=== PATIENT | male | born 1960 | race Caucasian/White ===

== ENCOUNTER 2024-06-16 21:52 | Emergency (ER) | payer BC, SELFPAY ==
[2024-06-16 21:53] VITALS: BP 117/83; PULSE 121; RESP 20; TEMP 36.6; O2SAT 93; BMI 25.4
[2024-06-16 22:12] LABS: Microscopic, Urine URINE MICROSCOPIC (MICROSCOPIC)
--- NOTE | 2024-06-16 22:15 | CT_ITS ---
PROCEDURE INFORMATION: Exam: CT Abdomen And Pelvis Without Contrast Exam date and time: 06/16/2024 10:27 PM Age: 64 years old Clinical indication: Abdominal pain; Flank; Right; Additional info: R>l flank pain, h/o stones TECHNIQUE: Imaging protocol: Computed tomography of the abdomen and pelvis without contrast. Radiation optimization: All CT scans at this facility use at least one of these dose optimization techniques: automated exposure control; mA and/or kV adjustment per patient size (includes targeted exams where dose is matched to clinical indication); or iterative reconstruction. COMPARISON: No relevant prior studies available. FINDINGS: Lungs: Mild bibasilar atelectasis. Liver: Normal. No mass. Gallbladder and biliary ducts: Status post cholecystectomy. No significant biliary ductal dilitation. Pancreas: Normal. No ductal dilation. Spleen: Calcified granulomas in the spleen. No splenomegaly. Adrenal glands: Normal. No mass. Kidneys and ureters: No urinary tract calculi or hydronephrosis. Mild bilateral perinephric fat stranding could be due to chronic medical renal disease. 2.2 cm cyst in the upper pole of the left kidney. Stomach and bowel: Mild sigmoid colon diverticulosis with mild diverticulitis of the proximal sigmoid colon. No dilated bowel loops. Appendix: No evidence of appendicitis. Intraperitoneal space: Mild inflammatory changes adjacent to an enlarged diverticulum in the proximal sigmoid colon. No free fluid or free air. Vasculature: Minimal atherosclerotic disease without aneurysm. Lymph nodes: Unremarkable. No enlarged lymph nodes. Urinary bladder: Unremarkable as visualized. Reproductive: Mild prostate enlargement. Bones/joints: Mild multilevel lumbar spine degenerative disc disease. Severe L4-L5 facet arthropathy with 2 mm of grade 1 anterolisthesis of L4 over L5. Soft tissues: Small fat containing bilateral inguinal hernias. Tiny fat containing umbilical hernia. IMPRESSION: 1. Mild diverticulitis of the proximal sigmoid colon. No free fluid or free air. 2. No urinary tract calculi. COMMENTS: Consistent with the [employer]'s Incidental Findings Committee white paper (J Am David Radiol 2018): Any incidental renal lesion less than 1 cm or classified as too small to characterize, or any incidental cystic renal lesion characterized as simple-appearing, is likely benign. No follow-up imaging is recommended for these lesions per consensus recommendations based on imaging criteria.
--- NOTE | 2024-06-16 22:17 | HMH.EDGENADL ---
Discharge Plan Disposition Patient Disposition: Home, Self-Care Condition: Good Prescriptions Prescriptions: New ketorolac 10 mg tablet 10 mg PO Q8H PRN (Reason: pain) 3 Days Qty: 12 0RF ondansetron 4 mg tablet,disintegrating 4 mg PO Q8H PRN (Reason: nausea and vomiting) 4 Days Qty: 12 0RF ciprofloxacin HCl 500 mg tablet 500 mg PO BID 7 Days Qty: 14 0RF metronidazole 500 mg tablet 500 mg PO Q8H 7 Days Qty: 21 0RF Referrals Follow up/Referrals: Abiel Chen II, MD [Primary Care Provider] - See instructions Activity Restrictions/Add. Instructions Additional Instructions/Restrictions: You were evaluated in the emergency department today and diagnosed with diverticulitis. Please nut picker your prescriptions at the pharmacy and take them in addition to Tylenol every 4-6 hours at home as needed for pain. Follow-up closely with your primary care provider. Return to the emergency department right away for new or worsening symptoms, such as significant worsening of pain, fevers greater than 100.4 ?F, intractable nausea and vomiting, or other concerns. Clinical Impressions Clinical Impression: Dysuria, Flank pain, Diverticulitis Stand Alone Forms Stand Alone Forms: Work/School Release Instructions Patient Instructions: DI for Diverticulitis Print Language Print Language: Bangladeshi Discharge ED Provider: Chika Glover General Adult HPI General Chief complaint: Urogenital-Male Stated complaint: back pain Time Seen by Provider: 06/16/24 21:55 Mode of Arrival: Ambulatory Source of Information: Patient Limitations: No Limitations Description of Symptoms (Recalled from ER Triage Doc. by RN): 64 M presents with c/o bilateral flank pain, dysuria, low grade fever, and chills that started 2 days ago. Patient reports history of kidney stones in the past. His urologist is located at [facility]. NAD, VSS History of Present Illness HPI narrative: This patient is a 64-year-old male who reports a history of kidney stones presenting to the emergency department for evaluation with concern for bilateral flank pain, right greater than left, dysuria, and low-grade fevers that started 2 days ago. He notes history of kidney stones in the past. The flank pain was preceded by the dysuria and feelings of possible urinary tract infection. He previously follows with urology at [place]. He notes he used to have kidney stones every 5 years but had not had one in a while now. No nausea, vomiting, changes in bowel movements, or other concerns. He took Tylenol at home prior to arrival. Related Data Previous Rx's ?Medication ?Instructions ?Recorded ciprofloxacin HCl 500 mg tablet 500 mg PO BID 7 days #14 tabs 06/16/24 ketorolac 10 mg tablet 10 mg PO Q8H PRN pain 3 days #12 06/16/24 tabs metronidazole 500 mg tablet 500 mg PO Q8H 7 days #21 tabs 06/16/24 ondansetron 4 mg disintegrating 4 mg PO Q8H PRN nausea and 06/16/24 tablet vomiting 4 days #12 tabs Allergies Allergy/AdvReac Type Severity Reaction Status Date / Time Penicillins Allergy Unknown Verified 06/16/24 22:08 allergy reaction [facility] Disclaimer: The information contained in this section may have been updated after the patient was seen, as this information can be updated by other users. Social History (Updated 06/16/24 @ 23:22 by Chika Glover DO) Smoking Status: Never smoker alcohol intake: never current occupational status: employed Travel in the last 8 weeks: None ROS Obtained: Yes All systems reviewed & no additional complaints except as documented Physical Exam General General appearance: alert and in no apparent distress Head Head exam: atraumatic and normocephalic Eye Eye exam: Present normal appearance, PERRL and EOMI ENT ENT exam: Present normal exam, normal oropharynx, mucous membranes moist and normal external ear exam Neck Neck exam: Present normal inspection, full ROM and trachea midline; Absent tenderness Chest Chest inspection: Present normal inspection and symmetric chest wall rise; Absent tenderness Respiratory Respiratory exam: Present normal lung sounds bilaterally; Absent respiratory distress, wheezes, stridor or accessory muscle use Cardiovascular Cardiovascular exam: Present normal rhythm and tachycardia Abdominal Exam Abdominal exam: Present soft; Absent distention, tenderness or guarding Extremities Exam Extremities exam: Present normal inspection, full ROM and normal capillary refill; Absent tenderness or edema Back Exam Back exam: Present normal inspection and full ROM; Absent tenderness Neurological Exam Neurological exam: Present alert, oriented X3, CN II-XII intact and normal gait; Absent motor sensory deficit Psychiatric Psychiatric exam: Present normal affect and normal mood Skin Skin exam: Present warm and dry Medical Decision Making Medical Records Medical records reviewed: Yes I reviewed the patient's medical records. Screening: Per USPSTF and CDC recommendations, given the prevalence of disease in our region, it is our hospital?s policy to screen for HIV and viral Hepatitis for all patients aged 18 and over and those with ongoing risk factors. [place] Inquiry Pt receiving controlled substance: No Vital Signs: 06/16/24 21:53 06/16/24 22:30 06/16/24 22:45 Temperature 97.8 F Temperature Source Oral Pulse Rate 104 H 113 H Pulse Rate [Left] 121 H Respiratory Rate 20 18 18 Blood Pressure Blood Pressure [Right Arm] 117/83 Blood Pressure Mean [Right Arm] 94 Blood Pressure Source [Right Arm] Automatic Cuff Blood Pressure Position [Right Arm] Sitting 02 Sat by Pulse Oximetry 93 L 96 92 L Oxygen Delivery Method Room Air Room Air Room Air 06/16/24 23:00 Temperature Temperature Source Pulse Rate 103 H Pulse Rate [Left] Respiratory Rate 17 Blood Pressure 120/75 Blood Pressure [Right Arm] Blood Pressure Mean [Right Arm] Blood Pressure Source [Right Arm] Blood Pressure Position [Right Arm] 02 Sat by Pulse Oximetry 93 L Oxygen Delivery Method Room Air Lab Data Lab results reviewed: Yes I reviewed the patient's lab results. Lab Results 06/16/24 22:02: Urine Color Yellow, Urine Appearance Clear, Urine pH 6.0, Ur Specific Jamul 1.020, Urine Protein Negative, Urine Glucose (UA) Negative, Urine Ketones Negative, Urine Blood Negative, Urine Nitrate Negative, Urine Bilirubin Negative, Urine Urobilinogen 0.2, Ur Leukocyte Esterase Negative, Urine WBC Occasional, Ur Squamous Epith Cells Occasional, Urine Bacteria Trace 06/16/24 22:20: WBC 12.5 H, RBC 5.89, Hgb 17.7, Hct 52.4 H, MCV 89.1, MCH 30.1, MCHC 33.8, RDW 13.4, Plt Count 260, MPV 7.5, Neut % (Auto) 75.2, Lymph % (Auto) 13.4, [place] % (Auto) 7.9, Eos % (Auto) 2.6, Baso % (Auto) 0.9, Neut # (Auto) 9.4 H, Lymph # (Auto) 1.7, [place] # (Auto) 1.0, Eos # (Auto) 0.3, Baso # (Auto) 0.1, Sodium 139, Potassium 3.8, Chloride 104, Carbon Dioxide 25, Anion Gap 13.8, BUN 16, Creatinine 1.00, Estimated Creat Clear 89, Estimated GFR 76, Est GFR ( Amer) 92, Glucose 101 H, Lactate 1.1, Calcium 9.1, Total Bilirubin 1.0, AST 33, ALT 32, Alkaline Phosphatase 61, Total Protein 7.7, Albumin 4.5, Globulin 3.2, Albumin/Globulin Ratio 1.4, Lipase 242, Procalcitonin 0.061, HIV 1&2 Antibody Rapid Nonreactive 06/16/24 22:20 06/16/24 22:20 Orders (Tests/Meds): ED MEDICATIONS Generic Name Dose Route Start Last Admin Trade Name Freq PRN Reason Stop Dose Admin Sodium Chloride 1,000 mls @ 999 mls/hr 06/16/24 22:37 06/16/24 22:39 Sod Chlor 0.9% 1000ml Bag IV 06/16/24 23:37 999 mls/hr .Q1H1M ONE Administration Sodium Chloride 10 ml 06/16/24 22:37 Sodium Chloride 0.9% 10ml Flush Syringe IV 06/17/24 10:38 NEEDED PRN Maintain IV Site Discontinued Medications Generic Name Dose Route Start Last Admin Trade Name Freq PRN Reason Stop Dose Admin Ketorolac Tromethamine 15 mg 06/16/24 22:15 06/16/24 22:31 Ketorolac 30mg/Ml Vial IV 06/16/24 22:16 15 mg ONCE ONE Administration ORDERS Category Date Time Status CT abdomen pelvis wo con Stat Cat Scan 06/16/24 22:15 Completed Complete Blood Count Auto Diff Stat Lab 06/16/24 22:20 Completed Comprehensive Metabolic Panel Stat Lab 06/16/24 22:20 Completed HIV (1&2) Antibody Rapid Stat Lab 06/16/24 22:20 Completed Hep C Ab with Reflex to RNA Stat Lab 06/16/24 22:20 Received Lactic Acid Stat Lab 06/16/24 22:20 Completed Lipase Stat Lab 06/16/24 22:20 Completed Procalcitonin Stat Lab 06/16/24 22:20 Completed UA [Urinalysis and Microscopic] Stat Lab 06/16/24 22:02 Completed Medical Decision Narrative: In summary, this patient is a 64-year-old man presenting to the Emergency Department for evaluation of dysuria, bilateral flank pain, low-grade fever. Differential diagnoses considered include but are not limited to cystitis, pyelonephritis, ureterolithiasis, colitis. Ruling out the most morbid conditions drove assessment. On exam, the patient is lying in bed in no acute distress. Workup included CBC, CMP, lipase, lactic acid, urinalysis, CT abdomen pelvis without IV contrast. Labs demonstrated very mild leukocytosis, but chemistry is reassuring. Urine is clear without significant concerns for infection or hematuria. Independently interpreted CT scan prior to radiology read and noted concerns for diverticulitis. Patient was notified of this. Ultimately, he is afebrile here, is nontoxic-appearing, and has benign abdominal exam. No concern such as perforation or abscess on CT scan, so I feel that he is appropriate for discharge home with trial of antibiotics and pain control. He will be given very strict return precautions should he develop persistent fevers, nausea, vomiting, or other significant concerns. He is penicillin allergic so he is given prescriptions for ciprofloxacin and Flagyl as well as for Toradol and Zofran for symptomatic improvement. He was also given instructions for close follow-up with primary care. Patient was discharged after all questions were answered Critical Care Critical Care Time Critical Care Time: No
[2024-06-16 22:30] VITALS: PULSE 104; RESP 18; O2SAT 96
[2024-06-16 22:31] LABS: Basophils # 0.1 K/mm3 (0-0.2); Basophils % 0.9 % (0.1-2.0); Eosinophils # 0.3 K/mm3 (0.0-0.4); Eosinophils % 2.6 % (0.1-12.0); Hematocrit 52.4 % (42.0-52.0); Hemoglobin 17.7 g/dL (14.1-18.0); Lymphocytes # 1.7 K/mm3 (0.7-4.5); Lymphocytes % 13.4 % (10-50); Mean Corpuscular HGB Conc 33.8 g/dL (31.8-35.4); Mean Corpuscular Hemoglobin 30.1 pg (27.0-31.2); Mean Corpuscular Volume 89.1 fl (80-94); Mean Platelet Volume 7.5 fl (7.4-10.4); Monocytes % 7.9 % (1.7-9.3); Neutrophils # 9.4 K/mm3 (1.8-7.8); Neutrophils % 75.2 % (37.0-80.0); Platelet Count 260 K/mm3 (142-424); Red Blood Count 5.89 M/mm3 (4.60-6.20); Red Cell Distribution Width 13.4 % (11.5-17.5); White Blood Count 12.5 K/mm3 (4.8-10.8)
[2024-06-16] MEDS: KETOROLAC 30MG/ML VIAL 15 MG IV (22:31)
[2024-06-16 22:39] LABS: Appearance,Urine CLEAR (Clear); Bilirubin,Urine Negative (Negative); Blood, Urine Negative (Negative); Color,Urine YELLOW (Yellow); Glucose,Urine (UA) Negative (Negative); Ketones,Urine Negative (Negative); Leukocyte Esterase,Urine Negative (Negative); Nitrate,Urine Negative (Negative); Protein,Urine Negative (Negative); Urobilinogen,Urine 0.2 EU/dl (0.2)
[2024-06-16] MEDS: 0.9 % SODIUM CHLORIDE 1000ML 1,000 ML 999 ML IV (22:39)
[2024-06-16 22:44] LABS: Alanine Aminotransferase 32 U/L (12-78); Albumin Level 4.5 g/dl (3.5-5.0); Albumin/Globulin Ratio 1.4 (1.1-1.8); Alkaline Phosphatase 61 U/L (38-126); Aspartate Amino Transferase 33 U/L (17-59); Blood Urea Nitrogen 16 mg/dl (9-20); Calcium 9.1 mg/dl (8.4-10.2); Carbon Dioxide 25 mmol/L (22.0-30.0); Chloride 104 mmol/L (98-107); Creatinine Clearance Estimated 89 mL/min (50-200); Estimated Glomerular Filt Rate 76 ml/min (>60); GFR (African American) 92 ML/MIN (>60); Globulin 3.2 g/dL (1.3-3.2); Glucose 101 mg/dl (74-100); Lactic Acid 1.1 mmol/L (0.7-2.1); Sodium 139 mmol/L (136-145); Total Protein,Serum 7.7 g/dl (6.3-8.2)
[2024-06-16 22:45] VITALS: PULSE 113; RESP 18; O2SAT 92
[2024-06-16 22:47] LABS: Anion Gap 13.8 mEq/L (5-15); Potassium 3.8 mmoL/L (3.5-5.1)
[2024-06-16 22:54] LABS: Bacteria,Urine Trace /lpf; Squamous Epithelial Cell,Urine Occasional #/hpf (0-5); WBC,Urine Occasional #/hpf (0-3)
[2024-06-16 22:57] LABS: HIV (1&2) Antibody Rapid NONREACTIVE (NONREACTIVE)
[2024-06-16 22:58] LABS: Lipase 242 U/L (23-300)
[2024-06-16 23:00] VITALS: BP 120/75; PULSE 103; RESP 17; O2SAT 93
[2024-06-16 23:01] LABS: Procalcitonin 0.061 ng/mL (0.0-2.0)
[2024-06-16 23:36] VITALS: BP 117/80; PULSE 98; RESP 18; TEMP 36.6; O2SAT 95
[2024-06-16] MEDS: metroNIDAZOLE 500 MG TABLET PO (23:41)
[2024-06-16] MEDS: levoFLOXacin 750 MG TABLET PO (23:41)
[2024-06-18 07:24] LABS: HCV Ab Non Reactive (Non Reactive)
== END 2024-06-16 23:46 | disposition home or self-care (01) ==
PROVIDERS: Emergency Provider Emergency Medicine; PCP Internal Medicine
DX: K57.92 Diverticulitis of intestine, part unspecified, without perforation or abscess without bleeding (principal); R10.9 Unspecified abdominal pain; R30.0 Dysuria; R50.9 Fever, unspecified
CPT/HCPCS: 74176; 80053; 81001; 83605; 83690; 84145; 85025; 86803; 87389; 96361; 96374; 99284; J1885; J7030